=== PATIENT | female | born 1940 | race Asian ===

== ENCOUNTER 2024-04-23 10:10 | Inpatient (IN) | payer MEDICARE, OTHER ==
[~2024-04-23] VITALS: Ht 144.8 cm; Wt 43.1 kg
[2024-04-23] VITALS (30 sets, daily range): BP systolic 73–187; BP diastolic 36–101; TEMP 96.7–97.6; O2SAT 96–100
[2024-04-23] MEDS: IV NORMAL SALINE 1000 ML BAG IV ONE (10:40)
[2024-04-23 10:51] LABS: BASOPHILS # (AUTO) 0.2 K/UL (0.0-0.2); BASOPHILS % (AUTO) 1.1 % (0.0-2.0); EOSINOPHILS # (AUTO) 0.3 K/uL (0.0-0.7); EOSINOPHILS % (AUTO) 2.2 % (0.0-7.0); HEMATOCRIT 25.6 % (31.2-41.9); HEMOGLOBIN 8.5 g/dL (10.9-14.3); LYMPHOCYTES # (AUTO) 3.1 K/uL (0.8-4.8); LYMPHOCYTES % (AUTO) 21.2 % (20.5-51.5); MEAN CORPUSCULAR HEMOGLOBIN 35.8 uug (24.7-32.8); MEAN CORPUSCULAR HGB CONC 33 g/dL (32.3-35.6); MEAN CORPUSCULAR VOLUME 107.5 fL (75.5-95.3); MONOCYTES % (AUTO) 6.6 % (0.0-11.0); NEUTROPHILS # (AUTO) 10.1 K/uL (1.8-8.9); NEUTROPHILS % (AUTO) 68.9 % (38.5-71.5); PLATELET COUNT (AUTO) 327 K/uL (179-408); RED CELL DISTRIBUTION WIDTH 14.6 % (12.3-17.7); WHITE BLOOD COUNT (AUTO) 14.7 K/uL (3.8-11.8)
[2024-04-23 11:04] LABS: DIFFERENTIAL COMMENT 1; RED BLOOD CELL COUNT(AUTO) 2.38 MIL/uL (3.63-4.92)
[2024-04-23 11:11] LABS: CALCIUM 8.9 mg/dL (8.5-10.1); CARBON DIOXIDE 17 mmol/L (21-32); CHLORIDE 113 mmol/L (98-107); CREATININE 1.5 mg/dL (0.6-1.3); GLUCOSE 177 mg/dL (74-106); SODIUM SERUM 140 mmol/L (136-145); UREA NITROGEN, BLOOD 48 mg/dL (7-18)
[2024-04-23 11:23] LABS: *OCCULT BLOOD STOOL POSITIVE (NEGATIVE)
[2024-04-23 11:25] LABS: LACTIC ACID 2.5 mmol/L (0.4-2.0)
[2024-04-23 11:29] LABS: ALANINE AMINOTRANSFERASE 33 U/L (14-59); ALBUMIN 2.5 g/dL (3.4-5.0); ALKALINE PHOSPHATASE 73 U/L (50-136); ASPARTATE AMINOTRANSFERASE 27 U/L (15-37); BILIRUBIN,DIRECT 0.1 mg/dL (0.0-0.2); BILIRUBIN,TOTAL 0.4 mg/dL (0.2-1.0); TOTAL PROTEIN, SERUM 6.3 g/dL (6.4-8.2)
[2024-04-23 12:01] LABS: *BILIRUBIN,URIN NEGATIVE (NEGATIVE); *BLOOD, URINE 2+ (NEGATIVE); *CLARITY,URINE SLIGHTLY CLOUDY (CLEAR); *COLOR,URINE YELLOW (YELLOW); *KETONES,URINE NEGATIVE (NEGATIVE); *PROTEIN,URINE 2+ (NEGATIVE); *UROBILINOGEN,URINE 0.2 E.U./dl (NORMAL); LEUKOCYTE ESTERASE ,URINE 1+ (NEGATIVE); NITRITE, URINE NEGATIVE (NEGATIVE); PH,URINE 5.5 (5.0-8.0); UGLUCOSE NEGATIVE (NEGATIVE)
[2024-04-23 12:15] LABS: BACTERIA,URINE MODERATE /HPF (NONE SEEN); RBC,URINE 20-50 /HPF (0-3); SQUAMOUS EPITHELIAL CELL,UR FEW /HPF (NONE SEEN); URINE AMORPHOUS URATE FEW /HPF; WBC,URINE 20-50 /HPF (0-3)
[2024-04-23] MEDS ORDERED: CEFTRIAXONE /D5W 50ML IVPB **ER PYXIS IV ONE (12:59)
[2024-04-23] MEDS: CEFTRIAXONE 1 G in IV DEXTROSE 5% 50 ML IV ONE (13:01)
[2024-04-23] MEDS ORDERED: ASPI-1420 PO (13:42)
[2024-04-23] MEDS ORDERED: LOSA50TA39 PO (13:42)
[2024-04-23] MEDS ORDERED: ERGO500040 PO (13:42)
[2024-04-23] MEDS ORDERED: DONE5TAB34 PO (13:42)
[2024-04-23] MEDS ORDERED: MIEBO (13:42)
[2024-04-23] MEDS ORDERED: LEVO150T8 PO (13:42)
[2024-04-23] MEDS ORDERED: FAMO20TA8 PO (13:42)
[2024-04-23] MEDS ORDERED: DAPA10TA PO (13:42)
[2024-04-23] MEDS ORDERED: GABA-532 PO (13:42)
[2024-04-23] MEDS ORDERED: LINA72CA PO (13:42)
[2024-04-23] MEDS ORDERED: ISOS10TA2 PO (13:42)
[2024-04-23] MEDS ORDERED: VERQUVO (13:42)
[2024-04-23] MEDS ORDERED: TAMS-3 PO (13:42)
[2024-04-23] MEDS ORDERED: CLON1PAT30 TOP (13:42)
[2024-04-23] MEDS ORDERED: hydrALAZINE HCL 25 MG TABLET PO PRN (16:30)
[2024-04-23] MEDS: ASPIRIN EC 81 MG TABLET.DR PO SCH (16:30)
[2024-04-23] MEDS: GABAPENTIN 100 MG CAPSULE PO SCH (17:01)
[2024-04-23] MEDS: LOSARTAN POTASSIUM 50 MG TABLET PO SCH (17:01)
[2024-04-23] MEDS: ISOSORBIDE DINITRATE 10 MG TABLET PO SCH (17:01)
[2024-04-23] MEDS: CLONIDINE-TTS 1 PATCH TD SCH (17:09)
[2024-04-23] MEDS: IV NS 1000 ML 1,000 ML IV SCH (17:46)
[2024-04-23] MEDS: ONDANSETRON 4 MG/2 ML VIAL IV PRN (17:49)
[2024-04-23] MEDS ORDERED: MEROPENEM 500 MG in IV NORMAL SALINE 50 ML IV SCH ×2 (18:00→18:30)
[2024-04-23] MEDS: PANTOPRAZOLE SODIUM 40 MG VIAL IV SCH (18:37)
[2024-04-23] MEDS ORDERED: ACETAMINOPHEN 650 MG SUPP.RECT RC PRN (18:45)
[2024-04-23] MEDS: MEROPENEM 1 G in IV NORMAL SALINE 100 ML IV SCH (18:50)
[2024-04-23 18:53] LABS: CALCIUM 7.5 mg/dL (8.5-10.1); CARBON DIOXIDE 13 mmol/L (21-32); CHLORIDE 117 mmol/L (98-107); CREATININE 1.4 mg/dL (0.6-1.3); GLUCOSE 178 mg/dL (74-106); POTASSIUM 4.6 mmol/L (3.5-5.1); SODIUM SERUM 142 mmol/L (136-145); UREA NITROGEN, BLOOD 44 mg/dL (7-18)
[2024-04-23 18:56] LABS: ALANINE AMINOTRANSFERASE 21 U/L (14-59); ALBUMIN 1.8 g/dL (3.4-5.0); ALKALINE PHOSPHATASE 51 U/L (50-136); ASPARTATE AMINOTRANSFERASE 14 U/L (15-37); BILIRUBIN,TOTAL 0.2 mg/dL (0.2-1.0); LIPASE 88 U/L (16-77); MAGNESIUM 1.8 mg/dL (1.8-2.4); PHOSPHOROUS 3.9 mg/dL (2.5-4.9); TOTAL PROTEIN, SERUM 4.6 g/dL (6.4-8.2)
[2024-04-23 19:02] LABS: IRON, SERUM 17 ug/dL (50-175)
[2024-04-23 20:01] LABS: HEMATOCRIT 27.4 % (31.2-41.9); HEMOGLOBIN 8.6 g/dL (10.9-14.3); MEAN CORPUSCULAR HEMOGLOBIN 34.3 uug (24.7-32.8); MEAN CORPUSCULAR HGB CONC 31 g/dL (32.3-35.6); MEAN CORPUSCULAR VOLUME 109.6 fL (75.5-95.3); PLATELET COUNT (AUTO) 338 K/uL (179-408); WHITE BLOOD COUNT (AUTO) 15.3 K/uL (3.8-11.8)
[2024-04-23 20:02] LABS: BASOPHILS # (AUTO) 0.1 K/UL (0.0-0.2); BASOPHILS % (AUTO) 0.7 % (0.0-2.0); EOSINOPHILS # (AUTO) 0.4 K/uL (0.0-0.7); EOSINOPHILS % (AUTO) 2.3 % (0.0-7.0); LYMPHOCYTES # (AUTO) 3.1 K/uL (0.8-4.8); LYMPHOCYTES % (AUTO) 20.1 % (20.5-51.5); MONOCYTES % (AUTO) 6.7 % (0.0-11.0); NEUTROPHILS # (AUTO) 10.8 K/uL (1.8-8.9); NEUTROPHILS % (AUTO) 70.2 % (38.5-71.5)
[2024-04-23] MEDS: VANCOMYCIN HCL 750 MG in IV DEXTROSE 5% 250 ML IV ONE (20:46)
[2024-04-23] MEDS ORDERED: TAMSULOSIN HCL 0.4 MG CAP.SR.24H PO SCH (21:00)
[2024-04-23] MEDS: IV D5/ 0.9% NACL 1,000 ML IV PRN (22:55)
[2024-04-24] VITALS (56 sets, daily range): BP systolic 80–179; BP diastolic 11–84; TEMP 95.9–98.6; O2SAT 97–100
[2024-04-24 00:30] LABS: HEMATOCRIT 14.3 % (31.2-41.9); HEMOGLOBIN 4.2 g/dL (10.9-14.3)
[2024-04-24] MEDS: NOREPINEPHRINE 8MG/NS 250ML 250 ML IV PRN (05:05)
[2024-04-24] MEDS ORDERED: LEVOTHYROXINE SODIUM 150 MCG TABLET PO SCH (07:00)
[2024-04-24] MEDS: PANTOPRAZOLE SODIUM 40 MG VIAL IV SCH (07:06)
[2024-04-24] MEDS ORDERED: DAPAGLIFLOZIN PROPANEDIOL 10 MG TABLET PO SCH (09:00)
[2024-04-24] MEDS ORDERED: DONEPEZIL 5 MG TABLET PO SCH (09:00)
[2024-04-24] MEDS ORDERED: FAMOTIDINE 20 MG TABLET PO SCH (09:00)
[2024-04-24] MEDS: hydrALAZINE HCL 20 MG/1 ML VIAL IV PRN (10:38)
[2024-04-24 11:42] LABS: BASOPHILS # (AUTO) 0.1 K/UL (0.0-0.2); BASOPHILS % (AUTO) 0.3 % (0.0-2.0); HEMATOCRIT 31.8 % (31.2-41.9); HEMOGLOBIN 10.2 g/dL (10.9-14.3); LYMPHOCYTES % (AUTO) 7.9 % (20.5-51.5); MEAN CORPUSCULAR HEMOGLOBIN 30.7 uug (24.7-32.8); MEAN CORPUSCULAR HGB CONC 32 g/dL (32.3-35.6); MEAN CORPUSCULAR VOLUME 95.3 fL (75.5-95.3); MONOCYTES # (AUTO) 1.2 K/uL (0.1-1.30); MONOCYTES % (AUTO) 4.7 % (0.0-11.0); NEUTROPHILS # (AUTO) 22.4 K/uL (1.8-8.9); NEUTROPHILS % (AUTO) 87.1 % (38.5-71.5); PLATELET COUNT (AUTO) 157 K/uL (179-408); RED BLOOD CELL COUNT(AUTO) 3.34 MIL/uL (3.63-4.92); RED CELL DISTRIBUTION WIDTH 17.8 % (12.3-17.7); WHITE BLOOD COUNT (AUTO) 25.7 K/uL (3.8-11.8)
[2024-04-24 11:49] LABS: DIFFERENTIAL COMMENT 1
[2024-04-24 12:05] LABS: ALANINE AMINOTRANSFERASE 609 U/L (14-59); ALBUMIN 1.9 g/dL (3.4-5.0); ALKALINE PHOSPHATASE 53 U/L (50-136); ASPARTATE AMINOTRANSFERASE 494 U/L (15-37); BILIRUBIN,TOTAL 0.3 mg/dL (0.2-1.0); CALCIUM 7.3 mg/dL (8.5-10.1); CARBON DIOXIDE 11 mmol/L (21-32); CHLORIDE 118 mmol/L (98-107); CREATININE 2.1 mg/dL (0.6-1.3); GLUCOSE 135 mg/dL (74-106); MAGNESIUM 1.8 mg/dL (1.8-2.4); NT-PRO BNP 1936 pg/mL (0-125); PHOSPHOROUS 5.8 mg/dL (2.5-4.9); POTASSIUM 5.2 mmol/L (3.5-5.1); SODIUM SERUM 144 mmol/L (136-145); TOTAL PROTEIN, SERUM 4.8 g/dL (6.4-8.2); UREA NITROGEN, BLOOD 48 mg/dL (7-18)
[2024-04-24] MEDS: VANCOMYCIN IV 500 MG in IV DEXTROSE 5% 100 ML IV ONE (12:36)
[2024-04-24 12:43] LABS: CHOLESTEROL 55 mg/dL (<200); HDL CHOLESTEROL 27 mg/dL (40-60); TRIGLYCERIDES 76 MG/DL (30-150)
[2024-04-24 13:04] LABS: THYROID STIMULATING HORMONE 0.034 mIU/mL (0.358-3.740)
[2024-04-24] MEDS: ONDANSETRON 4 MG/2 ML VIAL IV PRN (15:12)
[2024-04-24] MEDS ORDERED: GOLYTELY 4000 ML BOTTLE PO ONE (15:15)
[2024-04-24 15:35] LABS: BASOPHILS % (AUTO) 0.1 % (0.0-2.0); HEMATOCRIT 30.2 % (31.2-41.9); LYMPHOCYTES % (AUTO) 8.1 % (20.5-51.5); MEAN CORPUSCULAR HGB CONC 33 g/dL (32.3-35.6); MEAN CORPUSCULAR VOLUME 93.4 fL (75.5-95.3); MONOCYTES # (AUTO) 1.2 K/uL (0.1-1.30); NEUTROPHILS # (AUTO) 21.3 K/uL (1.8-8.9); NEUTROPHILS % (AUTO) 86.8 % (38.5-71.5); PLATELET COUNT (AUTO) 166 K/uL (179-408); RED BLOOD CELL COUNT(AUTO) 3.23 MIL/uL (3.63-4.92); RED CELL DISTRIBUTION WIDTH 17.6 % (12.3-17.7); WHITE BLOOD COUNT (AUTO) 24.5 K/uL (3.8-11.8)
[2024-04-24 15:38] LABS: DIFFERENTIAL COMMENT 1
[2024-04-24] MEDS: GOLYTELY 4000 ML BOTTLE PO ONE (16:14)
[2024-04-24] MEDS: REMEDY ESSENTIAL ZINC PASTE 113 GM TOP SCH (17:55)
[2024-04-24] MEDS: METOPROLOL TARTRATE 5 MG/5 ML VIAL IVP PRN (18:04)
[2024-04-24] MEDS: MEROPENEM 500 MG in IV NORMAL SALINE 50 ML IV SCH (20:15)
[2024-04-25] VITALS (22 sets, daily range): BP systolic 129–181; BP diastolic 41–130; TEMP 98.3–99.1; O2SAT 95–99
[2024-04-25 05:52] LABS: BASOPHILS % (AUTO) 0.1 % (0.0-2.0); HEMOGLOBIN 7.7 g/dL (10.9-14.3); LYMPHOCYTES # (AUTO) 1.1 K/uL (0.8-4.8); LYMPHOCYTES % (AUTO) 6.1 % (20.5-51.5); MEAN CORPUSCULAR HEMOGLOBIN 30.7 uug (24.7-32.8); MEAN CORPUSCULAR HGB CONC 34 g/dL (32.3-35.6); MEAN CORPUSCULAR VOLUME 91.7 fL (75.5-95.3); MONOCYTES % (AUTO) 5.7 % (0.0-11.0); NEUTROPHILS # (AUTO) 15.3 K/uL (1.8-8.9); NEUTROPHILS % (AUTO) 88.1 % (38.5-71.5); PLATELET COUNT (AUTO) 156 K/uL (179-408); RED BLOOD CELL COUNT(AUTO) 2.51 MIL/uL (3.63-4.92); RED CELL DISTRIBUTION WIDTH 18.4 % (12.3-17.7); WHITE BLOOD COUNT (AUTO) 17.4 K/uL (3.8-11.8)
[2024-04-25 06:07] LABS: DIFFERENTIAL COMMENT 1
[2024-04-25 06:44] LABS: ALANINE AMINOTRANSFERASE 696 U/L (14-59); ALBUMIN 1.9 g/dL (3.4-5.0); ALKALINE PHOSPHATASE 50 U/L (50-136); ASPARTATE AMINOTRANSFERASE 445 U/L (15-37); BILIRUBIN,TOTAL 0.3 mg/dL (0.2-1.0); CALCIUM 6.9 mg/dL (8.5-10.1); CARBON DIOXIDE 13 mmol/L (21-32); CHLORIDE 122 mmol/L (98-107); CREATININE 2.3 mg/dL (0.6-1.3); GLUCOSE 142 mg/dL (74-106); LIPASE 155 U/L (16-77); MAGNESIUM 1.6 mg/dL (1.8-2.4); PHOSPHOROUS 3.8 mg/dL (2.5-4.9); POTASSIUM 3.2 mmol/L (3.5-5.1); SODIUM SERUM 150 mmol/L (136-145); TOTAL PROTEIN, SERUM 4.6 g/dL (6.4-8.2); UREA NITROGEN, BLOOD 44 mg/dL (7-18)
[2024-04-25 06:52] LABS: THYROID STIMULATING HORMONE 0.009 mIU/mL (0.358-3.740)
[2024-04-25] MEDS: MORPHINE SULFATE 2 MG/1 ML DISP.SYRIN IV PRN (09:49)
[2024-04-25] MEDS ORDERED: EPINEPHRINE 1:10,000 1 MG/10 ML DISP.SYRIN ONE (10:25)
[2024-04-25] MEDS ORDERED: PROPOFOL 200 MG/20 ML BOTTLE ONE (11:00)
[2024-04-25] MEDS ORDERED: LABETALOL HCL 100 MG/20 ML VIAL ONE (11:56)
[2024-04-25] MEDS: LABETALOL HCL 100 MG/20 ML VIAL IV PRN (12:05)
[2024-04-25] MEDS: MAGNESIUM SULFATE/D5W 100 ML IV SCH (13:28)
[2024-04-25] MEDS: POTASSIUM CHLORIDE 50 ML IV SCH (13:29)
[2024-04-25] MEDS: MUPIROCIN 2% OINT 22 GM TUBE NS SCH (21:09)
[2024-04-26] VITALS (49 sets, daily range): BP systolic 66–203; BP diastolic 35–76; TEMP 96.3–98.9; O2SAT 95–100
[2024-04-26] MEDS: METOPROLOL TARTRATE 5 MG/5 ML VIAL IVP PRN (01:05)
[2024-04-26 07:13] LABS: BASOPHILS % (AUTO) 0.2 % (0.0-2.0); EOSINOPHILS # (AUTO) 0.1 K/uL (0.0-0.7); EOSINOPHILS % (AUTO) 0.7 % (0.0-7.0); HEMATOCRIT 22.2 % (31.2-41.9); LYMPHOCYTES # (AUTO) 1.6 K/uL (0.8-4.8); LYMPHOCYTES % (AUTO) 9.6 % (20.5-51.5); MEAN CORPUSCULAR HEMOGLOBIN 30.5 uug (24.7-32.8); MEAN CORPUSCULAR HGB CONC 32 g/dL (32.3-35.6); MEAN CORPUSCULAR VOLUME 94.1 fL (75.5-95.3); MONOCYTES # (AUTO) 1.2 K/uL (0.1-1.30); MONOCYTES % (AUTO) 7.6 % (0.0-11.0); NEUTROPHILS # (AUTO) 13.5 K/uL (1.8-8.9); NEUTROPHILS % (AUTO) 81.9 % (38.5-71.5); PLATELET COUNT (AUTO) 166 K/uL (179-408); RED CELL DISTRIBUTION WIDTH 18.9 % (12.3-17.7); WHITE BLOOD COUNT (AUTO) 16.5 K/uL (3.8-11.8)
[2024-04-26 07:30] LABS: ALANINE AMINOTRANSFERASE 516 U/L (14-59); ALBUMIN 1.9 g/dL (3.4-5.0); ALKALINE PHOSPHATASE 51 U/L (50-136); ASPARTATE AMINOTRANSFERASE 193 U/L (15-37); BILIRUBIN,TOTAL 0.4 mg/dL (0.2-1.0); CALCIUM 7.1 mg/dL (8.5-10.1); CARBON DIOXIDE 14 mmol/L (21-32); CHLORIDE 121 mmol/L (98-107); CREATININE 1.6 mg/dL (0.6-1.3); GLUCOSE 130 mg/dL (74-106); PHOSPHOROUS 2.6 mg/dL (2.5-4.9); POTASSIUM 3.5 mmol/L (3.5-5.1); SODIUM SERUM 146 mmol/L (136-145); TOTAL PROTEIN, SERUM 4.6 g/dL (6.4-8.2); UREA NITROGEN, BLOOD 31 mg/dL (7-18); VANCOMYCIN,RANDOM 12.8 ug/mL (20.0-30.0)
[2024-04-26 07:34] LABS: DIFFERENTIAL COMMENT 1; HEMOGLOBIN 7.2 g/dL (10.9-14.3); RED BLOOD CELL COUNT(AUTO) 2.36 MIL/uL (3.63-4.92)
[2024-04-26] MEDS: AMLODIPINE 10 MG TABLET PO SCH (12:00)
[2024-04-26] MEDS: VANCOMYCIN HCL 750 MG in IV DEXTROSE 5% 250 ML IV ONE (14:10)
[2024-04-26] MEDS: CLONIDINE-TTS 1 PATCH TD SCH (14:10)
[2024-04-26] MEDS: hydrALAZINE HCL 50 MG TABLET PO SCH (18:15)
[2024-04-26] MEDS: IV NS 1000 ML 1,000 ML IV ONE (20:10)
[2024-04-26] MEDS: CLONIDINE TTS 2 PATCH TD SCH (20:15)
[2024-04-26] MEDS: NOREPINEPHRINE 8MG/NS 250ML 250 ML IV PRN (22:18)
[2024-04-26] MEDS ORDERED: OCTREOTIDE ACETATE 500 MCG/1 ML VIAL ONE (22:31)
[2024-04-26] MEDS: OCTREOTIDE ACETATE DRIP 500 MCG in IV NORMAL SALINE 99 ML IV SCH (23:58)
[2024-04-27] VITALS (43 sets, daily range): BP systolic 105–190; BP diastolic 52–97; TEMP 97.1–97.6; O2SAT 98–100
[2024-04-27] MEDS ORDERED: CLONIDINE TTS 2 PATCH TD SCH (05:00)
[2024-04-27 05:10] LABS: BASOPHILS % (AUTO) 0.2 % (0.0-2.0); DIFFERENTIAL COMMENT 0; EOSINOPHILS % (AUTO) 0.1 % (0.0-7.0); HEMATOCRIT 33.8 % (31.2-41.9); HEMOGLOBIN 11.3 g/dL (10.9-14.3); LYMPHOCYTES # (AUTO) 1.4 K/uL (0.8-4.8); LYMPHOCYTES % (AUTO) 6.9 % (20.5-51.5); MEAN CORPUSCULAR HEMOGLOBIN 31.9 uug (24.7-32.8); MEAN CORPUSCULAR HGB CONC 33 g/dL (32.3-35.6); MEAN CORPUSCULAR VOLUME 95.3 fL (75.5-95.3); MONOCYTES # (AUTO) 1.4 K/uL (0.1-1.30); MONOCYTES % (AUTO) 7.1 % (0.0-11.0); NEUTROPHILS # (AUTO) 17.3 K/uL (1.8-8.9); NEUTROPHILS % (AUTO) 85.7 % (38.5-71.5); PLATELET COUNT (AUTO) 104 K/uL (179-408); RED BLOOD CELL COUNT(AUTO) 3.54 MIL/uL (3.63-4.92); RED CELL DISTRIBUTION WIDTH 15.4 % (12.3-17.7); WHITE BLOOD COUNT (AUTO) 20.2 K/uL (3.8-11.8)
[2024-04-27 05:22] LABS: ALANINE AMINOTRANSFERASE 299 U/L (14-59); ALBUMIN 1.5 g/dL (3.4-5.0); ALKALINE PHOSPHATASE 43 U/L (50-136); ASPARTATE AMINOTRANSFERASE 67 U/L (15-37); BILIRUBIN,TOTAL 0.6 mg/dL (0.2-1.0); CHLORIDE 117 mmol/L (98-107); CREATININE 1.5 mg/dL (0.6-1.3); GLUCOSE 228 mg/dL (74-106); MAGNESIUM 1.7 mg/dL (1.8-2.4); PHOSPHOROUS 3.5 mg/dL (2.5-4.9); POTASSIUM 3.7 mmol/L (3.5-5.1); SODIUM SERUM 144 mmol/L (136-145); TOTAL PROTEIN, SERUM 3.9 g/dL (6.4-8.2); UREA NITROGEN, BLOOD 25 mg/dL (7-18)
[2024-04-27 05:24] LABS: CARBON DIOXIDE 10 mmol/L (21-32)
[2024-04-27 05:26] LABS: LACTIC ACID 3.1 mmol/L (0.4-2.0)
[2024-04-27 06:05] LABS: ANISOCYTOSIS 1+; BAND % (MANUAL) 2 % (0-10); LYMPHOCYTES % (MANUAL) 2 % (20-40); METAMYELOCYTES % 1 % (0-1); MONOCYTES % (MANUAL) 5 % (2-10); MYELOCYTES % 1 % (0-0); NEUTROPHILS % (MANUAL) 88 % (42-75); PLATELET ESTIMATE DECREASED
[2024-04-27] MEDS: VANCOMYCIN IV 500 MG in IV DEXTROSE 5% 100 ML IV ONE (09:05)
[2024-04-27] MEDS ORDERED: PROPOFOL 200 MG/20 ML BOTTLE ONE (11:12)
[2024-04-27] MEDS: MAGNESIUM SULFATE/D5W 100 ML IV SCH (13:04)
[2024-04-27] MEDS: ALBUMIN HUMAN 25% 100 ML IV ONE ×2 (13:05→13:30)
[2024-04-28] VITALS (57 sets, daily range): BP systolic 148–202; BP diastolic 47–81; TEMP 97.1–100.2; O2SAT 92–100
[2024-04-28 02:07] LABS: HEPATITIS B SURFACE AG Negative (Negative); HEPATITIS C VIRUS ANTIBODY Non Reactive (Non Reactive)
[2024-04-28 04:54] LABS: HEMATOCRIT 21.2 % (31.2-41.9); MEAN CORPUSCULAR HGB CONC 33 g/dL (32.3-35.6); WHITE BLOOD COUNT (AUTO) 16.4 K/uL (3.8-11.8)
[2024-04-28 04:55] LABS: BASOPHILS # (AUTO) 0.1 K/UL (0.0-0.2); BASOPHILS % (AUTO) 0.7 % (0.0-2.0); EOSINOPHILS # (AUTO) 0.8 K/uL (0.0-0.7); EOSINOPHILS % (AUTO) 5.1 % (0.0-7.0); LYMPHOCYTES # (AUTO) 1.4 K/uL (0.8-4.8); LYMPHOCYTES % (AUTO) 8.6 % (20.5-51.5); MEAN CORPUSCULAR HEMOGLOBIN 31.5 uug (24.7-32.8); MEAN CORPUSCULAR VOLUME 95.2 fL (75.5-95.3); MONOCYTES # (AUTO) 1.6 K/uL (0.1-1.30); MONOCYTES % (AUTO) 9.5 % (0.0-11.0); NEUTROPHILS # (AUTO) 12.4 K/uL (1.8-8.9); NEUTROPHILS % (AUTO) 76.1 % (38.5-71.5); PLATELET COUNT (AUTO) 119 K/uL (179-408); RED CELL DISTRIBUTION WIDTH 15.6 % (12.3-17.7)
[2024-04-28 05:09] LABS: DIFFERENTIAL COMMENT 1; RED BLOOD CELL COUNT(AUTO) 2.22 MIL/uL (3.63-4.92)
[2024-04-28 05:18] LABS: ALANINE AMINOTRANSFERASE 156 U/L (14-59); ALBUMIN 1.9 g/dL (3.4-5.0); ALKALINE PHOSPHATASE 42 U/L (50-136); ASPARTATE AMINOTRANSFERASE 33 U/L (15-37); BILIRUBIN,DIRECT 0.2 mg/dL (0.0-0.2); BILIRUBIN,TOTAL 0.7 mg/dL (0.2-1.0); CALCIUM 7.7 mg/dL (8.5-10.1); CARBON DIOXIDE 13 mmol/L (21-32); CHLORIDE 121 mmol/L (98-107); CREATININE 1.3 mg/dL (0.6-1.3); GLUCOSE 135 mg/dL (74-106); MAGNESIUM 1.8 mg/dL (1.8-2.4); PHOSPHOROUS 2.6 mg/dL (2.5-4.9); POTASSIUM 3.2 mmol/L (3.5-5.1); SODIUM SERUM 148 mmol/L (136-145); TOTAL PROTEIN, SERUM 3.8 g/dL (6.4-8.2); UREA NITROGEN, BLOOD 19 mg/dL (7-18); VANCOMYCIN,RANDOM 16.7 ug/mL (20.0-30.0)
[2024-04-28] MEDS: METOPROLOL TARTRATE 5 MG/5 ML VIAL IVP PRN (06:02)
[2024-04-28] MEDS ORDERED: POTASSIUM CHLORIDE 20 MEQ POWDER PACKET GT ONE (06:45)
[2024-04-28] MEDS: VANCOMYCIN IV 500 MG in IV DEXTROSE 5% 100 ML IV ONE (07:48)
[2024-04-28] MEDS: POTASSIUM CHLORIDE 20 MEQ TAB.PRT.SR PO ONE (07:53)
[2024-04-28] MEDS: CLONIDINE-TTS 1 PATCH TD SCH (08:02)
[2024-04-28] MEDS: LOSARTAN POTASSIUM 50 MG TABLET PO SCH (08:08)
[2024-04-28] MEDS: NICARDIPINE-NS IVPB 200 ML IV PRN (11:33)
[2024-04-28 11:52] LABS: HEMATOCRIT 21.5 % (31.2-41.9)
[2024-04-28 11:54] LABS: HEMOGLOBIN 7.1 g/dL (10.9-14.3)
[2024-04-28] MEDS ORDERED: IOHEXOL 350 100 ML INFUS..BTL ONE (13:56)
[2024-04-28] MEDS ORDERED: IV NORMAL SALINE 250 ML IV ONE (13:56)
[2024-04-28] MEDS ORDERED: SWABABLE VALVE TRANSFER SET EA MC ONE (13:56)
[2024-04-28] MEDS: FUROSEMIDE 20 MG/2 ML VIAL IV ONE (18:06)
[2024-04-28] MEDS: ALBUTEROL SULFATE 1.25 MG/3 ML NEBU NEB SCH (18:16)
[2024-04-28] MEDS: IPRATROPIUM BROMIDE 0.5 MG/2.5 ML NEBU NEB SCH (18:16)
[2024-04-28] MEDS ORDERED: AMLODIPINE 5 MG TABLET PO SCH (21:00)
[2024-04-29] VITALS (57 sets, daily range): BP systolic 137–179; BP diastolic 45–73; TEMP 98.4–99.4; O2SAT 92–100
[2024-04-29 01:47] LABS: HEMATOCRIT 32.1 % (31.2-41.9); HEMOGLOBIN 10.6 g/dL (10.9-14.3)
[2024-04-29] MEDS: NICARDIPINE IN NS 200 ML IV PRN (02:29)
[2024-04-29 05:01] LABS: BASOPHILS # (AUTO) 0.1 K/UL (0.0-0.2); BASOPHILS % (AUTO) 0.4 % (0.0-2.0); EOSINOPHILS # (AUTO) 0.7 K/uL (0.0-0.7); EOSINOPHILS % (AUTO) 3.7 % (0.0-7.0); HEMATOCRIT 27.4 % (31.2-41.9); HEMOGLOBIN 9.5 g/dL (10.9-14.3); LYMPHOCYTES # (AUTO) 1.5 K/uL (0.8-4.8); LYMPHOCYTES % (AUTO) 8.3 % (20.5-51.5); MEAN CORPUSCULAR HEMOGLOBIN 31.5 uug (24.7-32.8); MEAN CORPUSCULAR HGB CONC 35 g/dL (32.3-35.6); MEAN CORPUSCULAR VOLUME 90.9 fL (75.5-95.3); MONOCYTES # (AUTO) 1.8 K/uL (0.1-1.30); NEUTROPHILS # (AUTO) 14.3 K/uL (1.8-8.9); NEUTROPHILS % (AUTO) 77.6 % (38.5-71.5); PLATELET COUNT (AUTO) 140 K/uL (179-408); RED BLOOD CELL COUNT(AUTO) 3.01 MIL/uL (3.63-4.92); RED CELL DISTRIBUTION WIDTH 16.1 % (12.3-17.7); WHITE BLOOD COUNT (AUTO) 18.4 K/uL (3.8-11.8)
[2024-04-29 05:20] LABS: DIFFERENTIAL COMMENT 1
[2024-04-29 05:29] LABS: CALCIUM 7.8 mg/dL (8.5-10.1); CARBON DIOXIDE 14 mmol/L (21-32); CHLORIDE 121 mmol/L (98-107); CREATININE 1.3 mg/dL (0.6-1.3); GLUCOSE 163 mg/dL (74-106); MAGNESIUM 1.6 mg/dL (1.8-2.4); PHOSPHOROUS 2.3 mg/dL (2.5-4.9); POTASSIUM 3.5 mmol/L (3.5-5.1); SODIUM SERUM 148 mmol/L (136-145); UREA NITROGEN, BLOOD 17 mg/dL (7-18); VANCOMYCIN,RANDOM 19.6 ug/mL (20.0-30.0)
[2024-04-29] MEDS: hydrALAZINE HCL 50 MG TABLET PO SCH (08:20)
[2024-04-29] MEDS: MAGNESIUM SULFATE/D5W 100 ML IV SCH (09:41)
[2024-04-29] MEDS: POTASSIUM PHOSPHATE MM 15 MMOL in IV NORMAL SALINE 250 ML IV ONE (15:58)
[2024-04-29] MEDS: AMLODIPINE 10 MG TABLET PO SCH (20:31)
[2024-04-30] VITALS (54 sets, daily range): BP systolic 151–189; BP diastolic 51–137; TEMP 97.6–98.6; O2SAT 96–100
[2024-04-30 05:01] LABS: BASOPHILS # (AUTO) 0.2 K/UL (0.0-0.2); BASOPHILS % (AUTO) 0.9 % (0.0-2.0); EOSINOPHILS # (AUTO) 0.5 K/uL (0.0-0.7); EOSINOPHILS % (AUTO) 2.8 % (0.0-7.0); HEMATOCRIT 31.2 % (31.2-41.9); HEMOGLOBIN 10.3 g/dL (10.9-14.3); LYMPHOCYTES # (AUTO) 1.5 K/uL (0.8-4.8); LYMPHOCYTES % (AUTO) 7.7 % (20.5-51.5); MEAN CORPUSCULAR HGB CONC 33 g/dL (32.3-35.6); MEAN CORPUSCULAR VOLUME 93.5 fL (75.5-95.3); MONOCYTES # (AUTO) 1.7 K/uL (0.1-1.30); MONOCYTES % (AUTO) 8.9 % (0.0-11.0); NEUTROPHILS # (AUTO) 15.1 K/uL (1.8-8.9); NEUTROPHILS % (AUTO) 79.7 % (38.5-71.5); PLATELET COUNT (AUTO) 155 K/uL (179-408); RED BLOOD CELL COUNT(AUTO) 3.33 MIL/uL (3.63-4.92); RED CELL DISTRIBUTION WIDTH 16.4 % (12.3-17.7); WHITE BLOOD COUNT (AUTO) 18.9 K/uL (3.8-11.8)
[2024-04-30 05:22] LABS: DIFFERENTIAL COMMENT 1
[2024-04-30 05:29] LABS: CALCIUM 7.8 mg/dL (8.5-10.1); CARBON DIOXIDE 15 mmol/L (21-32); CHLORIDE 120 mmol/L (98-107); CREATININE 1.2 mg/dL (0.6-1.3); GLUCOSE 143 mg/dL (74-106); MAGNESIUM 2.1 mg/dL (1.8-2.4); PHOSPHOROUS 3.8 mg/dL (2.5-4.9); POTASSIUM 3.6 mmol/L (3.5-5.1); SODIUM SERUM 147 mmol/L (136-145); UREA NITROGEN, BLOOD 13 mg/dL (7-18)
[2024-04-30 06:14] LABS: EOSINOPHILS % (MANUAL) 1 % (0-8); LYMPHOCYTES % (MANUAL) 8 % (20-40); MONOCYTES % (MANUAL) 5 % (2-10); NEUTROPHILS % (MANUAL) 86 % (42-75)
[2024-04-30 06:15] LABS: ANISOCYTOSIS 2+; PLATELET ESTIMATE ADEQUATE
[2024-04-30] MEDS: POLYVINYL ALCOHOL OPHT DROPS 15 ML BOTTLE EACHEYE PRN (09:26)
[2024-04-30] MEDS: VANCOMYCIN IV 500 MG in IV DEXTROSE 5% 100 ML IV ONE (11:02)
[2024-04-30] MEDS: hydrALAZINE HCL 50 MG TABLET PO SCH (13:27)
[2024-04-30] MEDS: FUROSEMIDE 40 MG/4 ML VIAL IV SCH (15:29)
[2024-04-30 19:07] LABS: CARBON DIOXIDE 15 mmol/L (21-32); CHLORIDE 114 mmol/L (98-107); CREATININE 1.1 mg/dL (0.6-1.3); GLUCOSE 174 mg/dL (74-106); POTASSIUM 3.6 mmol/L (3.5-5.1); SODIUM SERUM 144 mmol/L (136-145); UREA NITROGEN, BLOOD 12 mg/dL (7-18)
[2024-05-01] VITALS (32 sets, daily range): BP systolic 145–195; BP diastolic 53–82; TEMP 97.6–98.5; O2SAT 96–100
[2024-05-01 05:11] LABS: BASOPHILS # (AUTO) 0.1 K/UL (0.0-0.2); BASOPHILS % (AUTO) 0.5 % (0.0-2.0); EOSINOPHILS # (AUTO) 0.8 K/uL (0.0-0.7); HEMATOCRIT 32.6 % (31.2-41.9); HEMOGLOBIN 10.7 g/dL (10.9-14.3); LYMPHOCYTES # (AUTO) 1.7 K/uL (0.8-4.8); LYMPHOCYTES % (AUTO) 8.6 % (20.5-51.5); MEAN CORPUSCULAR HGB CONC 33 g/dL (32.3-35.6); MEAN CORPUSCULAR VOLUME 93.8 fL (75.5-95.3); MONOCYTES # (AUTO) 1.9 K/uL (0.1-1.30); MONOCYTES % (AUTO) 9.5 % (0.0-11.0); NEUTROPHILS # (AUTO) 15.1 K/uL (1.8-8.9); NEUTROPHILS % (AUTO) 77.4 % (38.5-71.5); PLATELET COUNT (AUTO) 174 K/uL (179-408); RED BLOOD CELL COUNT(AUTO) 3.47 MIL/uL (3.63-4.92); RED CELL DISTRIBUTION WIDTH 16.4 % (12.3-17.7); WHITE BLOOD COUNT (AUTO) 19.5 K/uL (3.8-11.8)
[2024-05-01 05:15] LABS: DIFFERENTIAL COMMENT 1
[2024-05-01 05:23] LABS: CALCIUM 8.1 mg/dL (8.5-10.1); CARBON DIOXIDE 19 mmol/L (21-32); CHLORIDE 112 mmol/L (98-107); CREATININE 1.2 mg/dL (0.6-1.3); GLUCOSE 131 mg/dL (74-106); MAGNESIUM 1.7 mg/dL (1.8-2.4); PHOSPHOROUS 3.3 mg/dL (2.5-4.9); POTASSIUM 3.1 mmol/L (3.5-5.1); SODIUM SERUM 143 mmol/L (136-145); UREA NITROGEN, BLOOD 11 mg/dL (7-18); VANCOMYCIN,RANDOM 20.1 ug/mL (20.0-30.0)
[2024-05-01 05:58] LABS: ANISOCYTOSIS 2+; LYMPHOCYTES % (MANUAL) 8 % (20-40); MONOCYTES % (MANUAL) 7 % (2-10); NEUTROPHILS % (MANUAL) 85 % (42-75); PLATELET ESTIMATE ADEQUATE
[2024-05-01] MEDS: MAGNESIUM SULFATE/D5W 100 ML IV SCH (08:21)
[2024-05-01] MEDS: POTASSIUM CHLORIDE 20 MEQ POWDER PACKET PO ONE (08:21)
[2024-05-01] MEDS: POTASSIUM CHLORIDE 50 ML IV SCH (08:21)
[2024-05-01] MEDS: CARVEDILOL 6.25 MG TABLET PO SCH (08:22)
[2024-05-01] MEDS: FUROSEMIDE 40 MG/4 ML VIAL IV SCH (08:59)
[2024-05-01] MEDS: TAMSULOSIN HCL 0.4 MG CAP.SR.24H PO SCH (20:35)
[2024-05-01] MEDS: diphenhydrAMINE 25 MG/10 ML UDC PO PRN (23:23)
[2024-05-02] VITALS (14 sets, daily range): BP systolic 110–167; BP diastolic 59–69; TEMP 97.6–98.9; O2SAT 95–100
[2024-05-02] MEDS ORDERED: PANTOPRAZOLE SODIUM 40 MG TABLET.DR PO SCH (07:00)
[2024-05-02] MEDS: PANTOPRAZOLE ORAL SUSPENSION 40 MG SUSPDR.PKT PO SCH (07:03)
[2024-05-02 07:05] LABS: BASOPHILS # (AUTO) 0.1 K/UL (0.0-0.2); BASOPHILS % (AUTO) 0.6 % (0.0-2.0); EOSINOPHILS # (AUTO) 0.9 K/uL (0.0-0.7); EOSINOPHILS % (AUTO) 5.9 % (0.0-7.0); HEMATOCRIT 30.7 % (31.2-41.9); HEMOGLOBIN 10.5 g/dL (10.9-14.3); LYMPHOCYTES # (AUTO) 1.9 K/uL (0.8-4.8); LYMPHOCYTES % (AUTO) 12.2 % (20.5-51.5); MEAN CORPUSCULAR HEMOGLOBIN 31.6 uug (24.7-32.8); MEAN CORPUSCULAR HGB CONC 34 g/dL (32.3-35.6); MEAN CORPUSCULAR VOLUME 92.9 fL (75.5-95.3); MONOCYTES # (AUTO) 1.7 K/uL (0.1-1.30); MONOCYTES % (AUTO) 10.9 % (0.0-11.0); NEUTROPHILS # (AUTO) 10.9 K/uL (1.8-8.9); NEUTROPHILS % (AUTO) 70.4 % (38.5-71.5); PLATELET COUNT (AUTO) 176 K/uL (179-408); RED BLOOD CELL COUNT(AUTO) 3.31 MIL/uL (3.63-4.92); RED CELL DISTRIBUTION WIDTH 16.6 % (12.3-17.7); WHITE BLOOD COUNT (AUTO) 15.5 K/uL (3.8-11.8)
[2024-05-02 07:22] LABS: DIFFERENTIAL COMMENT 1
[2024-05-02 07:33] LABS: CARBON DIOXIDE 22 mmol/L (21-32); CHLORIDE 108 mmol/L (98-107); CREATININE 1.3 mg/dL (0.6-1.3); GLUCOSE 124 mg/dL (74-106); POTASSIUM 3.2 mmol/L (3.5-5.1); SODIUM SERUM 140 mmol/L (136-145); UREA NITROGEN, BLOOD 13 mg/dL (7-18); VANCOMYCIN,RANDOM 15.7 ug/mL (20.0-30.0)
[2024-05-02] MEDS: VANCOMYCIN IV 500 MG in IV DEXTROSE 5% 100 ML IV ONE (09:06)
[2024-05-02] MEDS: FUROSEMIDE 20 MG TABLET PO SCH (10:14)
[2024-05-02] MEDS: POTASSIUM CHLORIDE 20 MEQ POWDER PACKET PO ONE (10:24)
[2024-05-03] VITALS (13 sets, daily range): BP systolic 118–164; BP diastolic 63–89; TEMP 97.8–100.1; O2SAT 95–100
[2024-05-03 06:13] LABS: BASOPHILS % (AUTO) 0.3 % (0.0-2.0); EOSINOPHILS # (AUTO) 0.6 K/uL (0.0-0.7); HEMATOCRIT 32.4 % (31.2-41.9); LYMPHOCYTES # (AUTO) 1.9 K/uL (0.8-4.8); LYMPHOCYTES % (AUTO) 13.5 % (20.5-51.5); MEAN CORPUSCULAR HEMOGLOBIN 31.7 uug (24.7-32.8); MEAN CORPUSCULAR HGB CONC 34 g/dL (32.3-35.6); MEAN CORPUSCULAR VOLUME 93.6 fL (75.5-95.3); MONOCYTES # (AUTO) 1.5 K/uL (0.1-1.30); MONOCYTES % (AUTO) 10.8 % (0.0-11.0); NEUTROPHILS # (AUTO) 10.1 K/uL (1.8-8.9); NEUTROPHILS % (AUTO) 71.4 % (38.5-71.5); PLATELET COUNT (AUTO) 202 K/uL (179-408); RED BLOOD CELL COUNT(AUTO) 3.46 MIL/uL (3.63-4.92); RED CELL DISTRIBUTION WIDTH 17.5 % (12.3-17.7); WHITE BLOOD COUNT (AUTO) 14.2 K/uL (3.8-11.8)
[2024-05-03 06:17] LABS: DIFFERENTIAL COMMENT 1
[2024-05-03 06:28] LABS: CALCIUM 8.2 mg/dL (8.5-10.1); CARBON DIOXIDE 26 mmol/L (21-32); CHLORIDE 104 mmol/L (98-107); CREATININE 1.2 mg/dL (0.6-1.3); GLUCOSE 105 mg/dL (74-106); MAGNESIUM 1.9 mg/dL (1.8-2.4); PHOSPHOROUS 3.1 mg/dL (2.5-4.9); POTASSIUM 3.9 mmol/L (3.5-5.1); SODIUM SERUM 138 mmol/L (136-145); UREA NITROGEN, BLOOD 16 mg/dL (7-18); VANCOMYCIN,RANDOM 19.3 ug/mL (20.0-30.0)
[2024-05-03] MEDS: MIRALAX 17 GM POWD.PACK PO SCH (15:35)
[2024-05-04] VITALS (9 sets, daily range): BP systolic 139–149; BP diastolic 61–66; TEMP 97.8–98.6; O2SAT 96–100
[2024-05-04 07:05] LABS: BASOPHILS # (AUTO) 0.1 K/UL (0.0-0.2); BASOPHILS % (AUTO) 0.5 % (0.0-2.0); DIFFERENTIAL COMMENT 0; EOSINOPHILS # (AUTO) 0.8 K/uL (0.0-0.7); EOSINOPHILS % (AUTO) 5.2 % (0.0-7.0); HEMATOCRIT 32.3 % (31.2-41.9); LYMPHOCYTES # (AUTO) 1.9 K/uL (0.8-4.8); LYMPHOCYTES % (AUTO) 13.1 % (20.5-51.5); MEAN CORPUSCULAR HEMOGLOBIN 32.3 uug (24.7-32.8); MEAN CORPUSCULAR HGB CONC 34 g/dL (32.3-35.6); MEAN CORPUSCULAR VOLUME 94.4 fL (75.5-95.3); MONOCYTES # (AUTO) 1.4 K/uL (0.1-1.30); MONOCYTES % (AUTO) 9.7 % (0.0-11.0); NEUTROPHILS # (AUTO) 10.4 K/uL (1.8-8.9); NEUTROPHILS % (AUTO) 71.5 % (38.5-71.5); PLATELET COUNT (AUTO) 219 K/uL (179-408); RED BLOOD CELL COUNT(AUTO) 3.42 MIL/uL (3.63-4.92); RED CELL DISTRIBUTION WIDTH 18.4 % (12.3-17.7); WHITE BLOOD COUNT (AUTO) 14.5 K/uL (3.8-11.8)
[2024-05-04 07:06] LABS: CARBON DIOXIDE 26 mmol/L (21-32); CHLORIDE 100 mmol/L (98-107); CREATININE 1.2 mg/dL (0.6-1.3); GLUCOSE 94 mg/dL (74-106); MAGNESIUM 1.9 mg/dL (1.8-2.4); PHOSPHOROUS 2.6 mg/dL (2.5-4.9); POTASSIUM 4.2 mmol/L (3.5-5.1); SODIUM SERUM 133 mmol/L (136-145); UREA NITROGEN, BLOOD 27 mg/dL (7-18); VANCOMYCIN,RANDOM 13.7 ug/mL (20.0-30.0)
[2024-05-04 09:30] LABS: EOSINOPHILS % (MANUAL) 4 % (0-8); LYMPHOCYTES % (MANUAL) 19 % (20-40); MONOCYTES % (MANUAL) 5 % (2-10); NEUTROPHILS % (MANUAL) 72 % (42-75); PLATELET ESTIMATE ADEQUATE
== END 2024-05-04 15:45 | DRG 871 ==
LOC: ER 10:10 → TELE3 15:08 → CCU 17:48 → TELE3 05-01 19:13 → MEDSURG3 05-02 10:22
PROVIDERS: ADMIT Internal Medicine; ATTEND Internal Medicine
PROC: 30233N1 Transfusion of Nonautologous Red Blood Cells into Peripheral Vein, Percutaneous Approach (ICD-10-PCS; principal; 2024-04-24)
PROC: 05HM33Z Insertion of Infusion Device into Right Internal Jugular Vein, Percutaneous Approach (ICD-10-PCS; 2024-04-24)
PROC: B543ZZA Ultrasonography of Right Jugular Veins, Guidance (ICD-10-PCS; 2024-04-24)
PROC: 0DB98ZX Excision of Duodenum, Via Natural or Artificial Opening Endoscopic, Diagnostic (ICD-10-PCS; 2024-04-25)
PROC: 0DB68ZX Excision of Stomach, Via Natural or Artificial Opening Endoscopic, Diagnostic (ICD-10-PCS; 2024-04-25)
PROC: 0DBH8ZX Excision of Cecum, Via Natural or Artificial Opening Endoscopic, Diagnostic (ICD-10-PCS; 2024-04-25 10:00)
PROC: 0DJD8ZZ Inspection of Lower Intestinal Tract, Via Natural or Artificial Opening Endoscopic (ICD-10-PCS; 2024-04-27)
PROC: 05HC33Z Insertion of Infusion Device into Left Basilic Vein, Percutaneous Approach (ICD-10-PCS; 2024-04-28)
DX: A41.9 Sepsis, unspecified organism (principal); E43 Unspecified severe protein-calorie malnutrition; K25.4 Chronic or unspecified gastric ulcer with hemorrhage; G92.8 Other toxic encephalopathy; R57.1 Hypovolemic shock; N17.0 Acute kidney failure with tubular necrosis; J69.0 Pneumonitis due to inhalation of food and vomit; I63.9 Cerebral infarction, unspecified; I50.31 Acute diastolic (congestive) heart failure; J96.91 Respiratory failure, unspecified with hypoxia; I21.A1 Myocardial infarction type 2; N39.0 Urinary tract infection, site not specified; D62 Acute posthemorrhagic anemia; G93.49 Other encephalopathy; D68.59 Other primary thrombophilia; I50.32 Chronic diastolic (congestive) heart failure; R64 Cachexia; Z22.322 Carrier or suspected carrier of Methicillin resistant Staphylococcus aureus; K63.89 Other specified diseases of intestine; Z79.82 Long term (current) use of aspirin; R65.20 Severe sepsis without septic shock; E83.42 Hypomagnesemia; E87.6 Hypokalemia; E03.9 Hypothyroidism, unspecified; I25.2 Old myocardial infarction; K63.5 Polyp of colon; K57.30 Diverticulosis of large intestine without perforation or abscess without bleeding; K29.80 Duodenitis without bleeding; Z79.899 Other long term (current) drug therapy; K76.89 Other specified diseases of liver; K29.70 Gastritis, unspecified, without bleeding; Z98.42 Cataract extraction status, left eye; Z98.41 Cataract extraction status, right eye; K59.00 Constipation, unspecified; Z87.440 Personal history of urinary (tract) infections; Z74.09 Other reduced mobility; I11.0 Hypertensive heart disease with heart failure; D47.3 Essential (hemorrhagic) thrombocythemia; R26.81 Unsteadiness on feet; R33.9 Retention of urine, unspecified; G93.89 Other specified disorders of brain; F03.A0 Unspecified dementia, mild, without behavioral disturbance, psychotic disturbance, mood disturbance, and anxiety; L89.159 Pressure ulcer of sacral region, unspecified stage; E87.5 Hyperkalemia
CPT/HCPCS: 36415; 70450; 71045; 78278; 82378; 83550; 83605; 83690; 83735; 84100; 84443; 84484; 85018; 85025; 85610; 85730; 86803; 86850; 86900; 86901; 86920; 87040; 87086; 87340; 88312-TC; 88313-TC; 93005; 93307; 94640; 94664; 94760; A4606; A4663; A6209; A9560; G0378; J0171; J0360; J0696; J1940; J2185; J2270; J2354; J2405; J2470; J3370; J3475; J3480; J3490; J3590; J7040; J7042; J7050; J7120; P9016; P9047; Q0163; Q9967

== ENCOUNTER 2024-07-03 22:44 | Emergency (ER) | payer MEDICARE, OTHER ==
[~2024-07-03] VITALS: Ht 149.9 cm; Wt 44.0 kg
[~2024-07-03 22:44] MED LIST: ASPI-1420 PO; CLON1PAT30 TOP; DAPA10TA PO; DONE5TAB34 PO; ERGO500040 PO; FAMO20TA8 PO; GABA-532 PO; ISOS10TA2 PO; LEVO150T8 PO; LINA72CA PO; LOSA50TA39 PO; MIEBO; TAMS-3 PO; VERQUVO
[2024-07-03 23:09] LABS: BASOPHILS # (AUTO) 0.1 K/UL (0.0-0.2); BASOPHILS % (AUTO) 1.3 % (0.0-2.0); EOSINOPHILS # (AUTO) 0.5 K/uL (0.0-0.7); HEMATOCRIT 34.4 % (31.2-41.9); HEMOGLOBIN 11.3 g/dL (10.9-14.3); LYMPHOCYTES # (AUTO) 1.8 K/uL (0.8-4.8); LYMPHOCYTES % (AUTO) 17.3 % (20.5-51.5); MEAN CORPUSCULAR HEMOGLOBIN 31.2 uug (24.7-32.8); MEAN CORPUSCULAR HGB CONC 33 g/dL (32.3-35.6); MEAN CORPUSCULAR VOLUME 94.8 fL (75.5-95.3); MONOCYTES # (AUTO) 0.8 K/uL (0.1-1.30); MONOCYTES % (AUTO) 8.1 % (0.0-11.0); NEUTROPHILS % (AUTO) 68.3 % (38.5-71.5); PLATELET COUNT (AUTO) 483 K/uL (179-408); RED BLOOD CELL COUNT(AUTO) 3.63 MIL/uL (3.63-4.92); RED CELL DISTRIBUTION WIDTH 15.5 % (12.3-17.7); WHITE BLOOD COUNT (AUTO) 10.3 K/uL (3.8-11.8)
[2024-07-03 23:12] LABS: DIFFERENTIAL COMMENT 1
[2024-07-03 23:18] LABS: CALCIUM 8.9 mg/dL (8.5-10.1); CARBON DIOXIDE 19 mmol/L (21-32); CHLORIDE 111 mmol/L (98-107); CREATININE 1.7 mg/dL (0.6-1.3); GLUCOSE 101 mg/dL (74-106); POTASSIUM 5.6 mmol/L (3.5-5.1); SODIUM SERUM 141 mmol/L (136-145); UREA NITROGEN, BLOOD 50 mg/dL (7-18)
[2024-07-03 23:24] LABS: ALANINE AMINOTRANSFERASE 81 U/L (14-59); ALBUMIN 2.4 g/dL (3.4-5.0); ALKALINE PHOSPHATASE 94 U/L (50-136); ASPARTATE AMINOTRANSFERASE 60 U/L (15-37); BILIRUBIN,TOTAL 0.2 mg/dL (0.2-1.0); MAGNESIUM 2.4 mg/dL (1.8-2.4); TOTAL PROTEIN, SERUM 7.8 g/dL (6.4-8.2)
[2024-07-03] MEDS ORDERED: INSULIN NPH 1,000 UNITS/10 ML VIAL SQ ONE (23:34)
[2024-07-03] MEDS: ACETAMINOPHEN 500 MG TABLET PO ONE (23:41)
[2024-07-03] MEDS ORDERED: PANT40TA2 PO (23:53)
[2024-07-04] MEDS: CALCIUM CHLORIDE 1 GM/10 ML DISP.SYRIN IVP ONE (00:01)
[2024-07-04] MEDS: DEXTROSE 50% 50 ML DISP.SYRIN IV ONE (00:03)
[2024-07-04] MEDS: INSULIN REGULAR, HUMAN 1000 UNIT/10 ML VIAL IV ONE (00:04)
[2024-07-04] MEDS ORDERED: hydrALAZINE HCL 20 MG/1 ML VIAL ONE (00:06)
[2024-07-04] MEDS: hydrALAZINE HCL 20 MG/1 ML VIAL IV ONE (00:10)
[2024-07-04 02:03] VITALS: BP 130/48; TEMP 98.1; O2SAT 98
== END 2024-07-04 02:04 | disposition home or self-care (01) ==
LOC: ER 22:48
DX: E87.5 Hyperkalemia (principal); K62.5 Hemorrhage of anus and rectum; F03.90 Unspecified dementia, unspecified severity, without behavioral disturbance, psychotic disturbance, mood disturbance, and anxiety; I10 Essential (primary) hypertension; Z79.82 Long term (current) use of aspirin; Z79.84 Long term (current) use of oral hypoglycemic drugs; Z79.899 Other long term (current) drug therapy; Z86.73 Personal history of transient ischemic attack (TIA), and cerebral infarction without residual deficits; Z86.69 Personal history of other diseases of the nervous system and sense organs
CPT/HCPCS: 99284; 80053; 83735; 85025; 85610; 86850; 86900; 86901; 36415; 93005; 96374; 96375; J3490; J1815; J0360; A4606; A4663; A9150